=== PATIENT | female | born 1955 | race African-American/Black ===

== ENCOUNTER 2016-08-13 12:01 | Emergency (ER) ==
[2016-08-13 12:50] LABS: MANUAL DIFF NEEDED? NO
[2016-08-13 12:53] LABS: BASO% 0.6 % (0.0-0.8); EOS# 0.09 X1000 (0.0-0.7); HEMATOCRIT 37.7 % (37.0-47.0); HEMOGLOBIN 12.1 g/dL (12.0-16.0); IMM GRAN# 0.04 X1000 (0.0-0.04); IMM GRAN% 0.5 % (0.0-0.5); LYMPH# 0.54 X1000 (1.2-3.4); LYMPH% 6.3 % (20.5-51.1); MCH 26.4 PG (27-31); MCHC 32.1 g/dL (33-37); MCV 82.3 FL (81-99); MONO# 0.75 X1000 (0.11-0.59); MONO% 8.7 % (1.7-9.3); MPV 8.7 FL (7.4-10.4); NEUT% 82.9 % (42.2-75.2); PLT 354 X1000 (130-400); RBC 4.58 XMIL (4.2-5.4)
--- NOTE | 2016-08-13 13:00 | PROVIDER DOCUMENTATION ---
HPI-Respiratory General - General Source: patient - History of Present Illness-Resp Quality of Pain: reports: none Severity in ED: reports: moderate Onset/Duration: reports: 2 days ago Timing: reports: still present Cough Quality/Degree: reports: productive cough Episode Frequency: occasional episodes Current Respiratory Medication Therapy: Initiated see nurses note Similar Symptoms Previously?: No Recently seen or treated by another doctor?: No <Moises Chicas - Last Filed: 08/13/16 13:03> <Daphne Alfredo - Last Filed: 08/13/16 13:48> - General Chief Complaint: Flu Symptoms Stated Complaint: COUGH/ABD PAIN/DIZZINESS Time Seen by Provider: 08/13/16 12:41 Allergies/Adverse Reactions: Patient Allergies Allergy/AdvReac Type Severity Reaction Status Date / Time levofloxacin [From Levaquin] Allergy RASH Verified 08/13/16 12:22 Home Medications: Home Medication List Medication Instructions Recorded Confirmed Last Taken Type Losartan Potassium 50 mg PO DAILY 04/01/12 04/01/12 04/01/12 10:00 History Pantoprazole Sodium 40 mg PO 04/01/12 04/01/12 04/01/12 10:00 History Albuterol Sulfate Inhaler 2 puff INH [id number] #1 inhaler 08/13/16 Unknown Rx [Ventolin Hfa] Benzonatate [Tessalon Perle] 100 mg PO TID #20 capsule 08/13/16 Unknown Rx Doxycycline 100 mg PO BID #20 capsule 08/13/16 Unknown Rx Prednisone 20 mg PO DAILY #5 tablet 08/13/16 Unknown Rx - History of Present Illness-Resp Nature of Presenting Problem: Pt is a smoker that presents to er with productive cough x 2 days. Denies f,n,v, f,d,sob. (Moises Chicas) Review of Systems - Adult - REVIEW OF SYSTEMS - ADULT Constitutional: denies: chills, fever, fatique Eyes: reports: no symptoms reported Ears, Nose, Mouth & Throat: reports: no symptoms reported Cardiovascular: denies: chest pain, irregular heart rate, orthopnea, syncope Respiratory: reports: cough. denies: shortness of breath, wheezing Gastrointestinal: reports: no symptoms reported Genitourinary: reports: no symptoms reported Musculoskeletal: reports: no symptoms reported Integumentary: reports: no symptoms reported Neurological: reports: no symptoms reported Psychiatric: reports: no symptoms reported Endocrine: reports: no symptoms reported Hematologic/Lymphatic: reports: no symptoms reported Allergic/Immunologic: reports: no symptoms reported All Other Systems: Reviewed and Negative <Moises Chicas - Last Filed: 08/13/16 13:03> Past History - Adult - PAST MEDICAL HISTORY-ADULT Review of Records: reports: Nursing Assessment Review Major Childhood Illnesses: reports: denies history Cardiovascular: reports: denies history Respiratory: reports: denies history - PRIOR SURGERIES/PROCEDURES Surgical/Procedure History: reports: cholecystectomy, BTL, tonsillectomy - IMMUNIZATION STATUS Childhood Immunizations: See Nurse Assessment Flu Vaccine: See Nurse Assessment - SOCIAL HISTORY Smoking: cigarettes, less than 1 pack/day Provider spent 3-5 mins advising pt. on dangers of tobacco.: Discussed manners to quit use, and f/u contacts for add'l counseling. Substance Use: none/never <Moises Chicas - Last Filed: 08/13/16 13:03> Physical Exam-General - PHYSICAL EXAM-ADULT Initial Vital Signs Reviewed: Yes - CONSTITUTIONAL General Appearance: appears well, alert, no apparent distress - EYES Eyes: PERRL/EOMI, pink conjunctivae - HEAD, EARS, NOSE, MOUTH & THROAT HENMT: normocephalic/atraumatic, moist mucous membranes, normal ENT inspection, TMs normal, pharynx normal - NECK Neck: non-tender, full range of motion, supple - RESPIRATORY Respiratory: lungs clear, normal breath sounds. negative: wheezing - CARDIOVASCULAR Cardiovascular: normal peripheral pulses, regular rate, rhythm - GASTROINTESTINAL (ABDOMEN) Abdominal Exam: non tender, soft - MUSCULOSKELETAL Back Exam: normal inspection, no vertebral tenderness Extremity: normal range of motion, normal capillary refill - SKIN Integumentary: normal color, normal turgor, warm/dry - PSYCHIATRIC Psych/Mental Status: normal mood/affect, oriented x 3 <Daphne Alfredo - Last Filed: 08/13/16 13:48> Progress - XRAY 1 XRAY: Bilateral XRAY Study: Chest Impression: Normal XRAY Interpretation: nad <Moises Chicas - Last Filed: 08/13/16 13:03> <Daphne Alfredo - Last Filed: 08/13/16 13:48> - PLAN OF CARE/RESULTS Progress/Plan/Lab Results: Orders Category Date Time Status CHEST-2 VIEWS [RAD] Stat Exams 08/13/16 12:20 Taken BLOOD CULTURE [BLDCUL] Stat Lab 08/13/16 12:20 Ordered CBC WITH DIFF [HEME] Stat Lab 08/13/16 12:40 Completed COMPREHENSIVE METABOLIC PANEL [CHEM] Stat Lab 08/13/16 12:[address] Stat Lab 08/13/16 12:32 Completed Pulse Oximetry Stat Oth 08/13/16 12:20 Active Vital Signs - 24 hr 08/13/16 12:19 Temperature 99.3 F Pulse Rate 112 H Respiratory 20 Rate Blood Pressure 136/73 O2 Sat by Pulse 100 Oximetry Laboratory Tests 08/13/16 08/13/16 12:32 12:40 WBC 8.62 RBC 4.58 Hgb 12.1 Hct 37.7 MCV 82.3 MCH 26.4 L MCHC 32.1 L RDW Std Deviation 14.6 H Plt Count 354 MPV 8.7 Immature Gran % (Auto) 0.5 Neut % (Auto) 82.9 H Lymph % (Auto) 6.3 L Price % (Auto) 8.7 Eos % (Auto) 1.0 Baso % (Auto) 0.6 Immature Gran # (Auto) 0.04 Neut # (Auto) 7.15 H Lymph # (Auto) 0.54 L Price # (Auto) 0.75 H Eos # (Auto) 0.09 Baso # (Auto) 0.05 Influenza A (Rapid) NEGATIVE Influenza B (Rapid) NEGATIVE (Moises Chicas) Departure <Moises Chicas - Last Filed: 08/13/16 13:03> - Departure Time of Disposition Order: 13:46 Certified Medical Emergency: Emergent <Daphne Alfredo - Last Filed: 08/13/16 13:48> - Departure DIAGNOSIS: Bronchitis Disposition: HOME 01 Condition: Stable Additional Instructions: ED Follow Up Instructions: You have been treated by a care provider in the Emergency Department. These instructions are being provided to you so you can have an understanding of how to care for yourself upon discharge. Upon discharge from the Emergency Department, you are responsible for making arrangements for follow-up care by a physician of your choice. Take all prescribed medications as directed. Return to the Emergency Department immediately for any new or worsening symptoms. You may call the Physician Referral phone number at [phone] to obtain a list of Physicians who are taking new patients. Prescriptions: Doxycycline 100 mg PO BID #20 capsule Prednisone 20 mg PO DAILY #5 tablet Benzonatate [Tessalon Perle] 100 mg PO TID #20 capsule Albuterol Sulfate Inhaler [Ventolin Hfa] 2 puff INH [id number] #1 inhaler Referrals: Jocelyn Ruffin MD [Primary Care Provider] - Attestation - Scribe Verification/Attestation Scribe:: Moises Chicas Acting as Scribe for:: Daphne Alfredo Scribe documention review:: This chart was documented by a scribe and accurately reflects the service the provider performed and the decisions made by the provider. - Physician/ ADRIÁN Attestation Patient care was provided by Advanced Practice Provider:: Yes Advanced Practice Provider:: Daphne Alfredo Advanced Practice Provider documentation review:: The Mid-level provider documentation, treatment plan and medical decision making was reviewed by the physician who agrees with all treatment and medical decision making by the MLP. <Moises Chicas - Last Filed: 08/13/16 13:03> Physician Attestation
--- NOTE | 2016-08-13 13:27 | Diag Imaging Result Document ---
PROCEDURE NAME: CHEST-2 VIEWS - 08/13/2016 FRONTAL AND LATERAL CHEST, TWO VIEWS: COMPARISON: 04/05/2012. FINDINGS: There are large calcified right peritracheal lymph nodes with a granuloma in the upper outer right lung. These are unchanged. The lungs are well expanded. The heart is not enlarged. The vessels are not distended. No pleural effusions. IMPRESSION: Stable chest. No pneumonia.
[2016-08-13 13:40] LABS: AGAP 12; ALBUMIN 4.7 g/dL (3.5-5.0); ALKALINE PHOSPHATASE 81 U/L (32-104); BUN 11 mg/dL (8-22); CALCIUM 9.6 mg/dL (8.8-10.2); CHLORIDE 94 mmol/L (98-107); COSMO 264; GOT 28 U/L (10-30); GPT 27 U/L (10-36); POTASSIUM 3.8 mmol/L (3.5-5.1); SODIUM 132 mmol/L (136-145); TCO2 27 mmol/L (25-35); TOTAL BILIRUBIN < 0.15 mg/dL (0.20-1.00); TOTAL PROTEIN 7.5 g/dL (6.3-8.3)
[2016-08-13] MEDS ORDERED: DECADRON IM ONE (13:42)
[2016-08-13 14:20] VITALS: BP 133/77
== END 2016-08-13 14:19 | disposition home or self-care (01) ==
LOC: P.ED 12:01
DX: J40 Bronchitis, not specified as acute or chronic (principal); R05 Cough; R09.3 Abnormal sputum; R10.9 Unspecified abdominal pain; R42 Dizziness and giddiness; F17.210 Nicotine dependence, cigarettes, uncomplicated; Z79.899 Other long term (current) drug therapy; Z71.6 Tobacco abuse counseling
CPT/HCPCS: 36415; 71020; 80053; 85025; 87040; 87804; 96372